=== PATIENT | female | born 1955 | race Caucasian/White ===

== ENCOUNTER → 2016-12-13 | Outpatient (CLI) | payer MEDICARE, BC ==
[~2016-12-13] MED LIST: /FENT25PA TD; /FENT75PA TD; ACET65TA OR; ALBU83IN IN; AMBI5TAB OR; ASPI81TA3 OR; B COMPLEX VIT PO; CLON0.3T TD; COZA100T OR; CoQ10 OR; D3 OR; DILA2TAB OR; ESTR1TAB OR; FISH1000 OR; FLON0.05; FLOV50AE IN; FOLI1TAB OR; HYDROCODONE PO; LEVOXYL25 MCG OR; LIDO5DIS EX; LIDODERM PATCH; MAGN250T OR; MULTIVIT PO; MUSCLE RELAXANT PO; NEUR100C OR; OMEP20TA7 OR; PATANASE; PENNSAID TOP; Probiotics PO; ROBA500T OR; SOMA350T OR; TOPR50TA OR; TRAM50TA2 OR; TRAZADONE PO; TYLE500T53 OR; VITACAP31 OR; VOLT1GEL EX; ZITHTAB OR; [UNRECOGNIZED DRUG - OTHER] PO; [UNRECOGNIZED DRUG - OTHER] PO; flexeril PO; stool softner OR
--- NOTE | 2016-12-13 15:27 | REPMRS ---
Patient History The patient states she had a clinical breast exam in 12/2016. Patient is postmenopausal and has history of basal and squamous cell skin cancer at age 48. No known family history of cancer. Taking estrogen for 30 years. Digital Woman Screen Mammo: December 13, 2016 - Exam #: [id number] Bilateral CC and MLO view(s) were taken. Technologist: Candice Castro, Technologist Prior study comparison: December 09, 2015, digital woman screen mammo performed at [facility]. November 30, 2014, digital woman screen mammo performed at [facility]. FINDINGS: The breast tissue is heterogeneously dense. This may lower the sensitivity of mammography. There has been no change in the appearance of the mammogram from the prior studies. There is a moderate amount of residual fibroglandular tissue which is fairly symmetric. There is no interval development of dominant mass, areas of architectural distortion, or clustered microcalcification typical of malignancy. ASSESSMENT: BI-RADS/ACR category 1 mammogram. Negative. Recommendation Routine screening mammogram in 1 year (for women over age 40). This mammogram was interpreted with the aid of an FDA-approved computer-aided dectection system. Electronically Signed By: Sherwin Prescott MD 12/13/16 1602
== END ==
LOC: M WHC 13:36
PROVIDERS: ATTEND Nurse Practitioner Family
DX: Z01.419 Encounter for gynecological examination (general) (routine) without abnormal findings (principal); Z12.31 Encounter for screening mammogram for malignant neoplasm of breast; R92.8 Other abnormal and inconclusive findings on diagnostic imaging of breast; Z78.0 Asymptomatic menopausal state; Z12.12 Encounter for screening for malignant neoplasm of rectum; Z92.0 Personal history of contraception
CPT/HCPCS: 82270; G0101; G0202

== ENCOUNTER 2017-05-12 14:41 | Emergency (ER) | payer MEDICARE, BC, OTHER ==
[~2017-05-12] VITALS: Ht 154.9 cm; Wt 58.2 kg
[2017-05-12] MEDS ORDERED: PANTOPRAZOLE 40MG INJ (PROTONIX) (C9113) IV ONE (17:15)
[2017-05-12] MEDS ORDERED: NS 1,000 ML IV ONE (17:15)
[2017-05-12] MEDS ORDERED: ONDANSETRON 4MG/2ML VIAL (J2405) IV ONE (17:15)
--- NOTE | 2017-05-12 18:30 | REPUSA ---
Clinical history: Right upper quadrant pain. Findings: The pancreas is limited in visualization secondary to overlying bowel gas, but appears dacia sly unremarkable. The liver demonstrates uniform echotexture and echogenicity, with no mass lesions. The gallbladder is unremarkable. The common bile duct measures 9 mm. The right kidney measures 10.6 c m in length and is unremarkable. There is no ascites. Impression: Dilated common bile duct measures up to 9 mm. No obstructing stone is identified. The gal lbladder is unremarkable. If there is further clinical concern, MRCP could be performed.
[2017-05-12 18:41] LABS: BASO % 0.5 % (0.0-1.0); EOS # 0.1 10^3/uL (0.0-0.50); EOS % 2.1 % (0.0-3.0); IMMATURE GRANULOCYTE % 0.2 % (0-0); LYMPH # 1.5 10^3/uL (1.5-4.5); LYMPH % 34.5 % (24.0-44.0); MEAN CORPUSCULAR HEMOGLOBIN 32.6 pg (27.0-33.0); MEAN CORPUSCULAR HGB CONC 33.9 g/dl (32.0-36.5); MONO # 0.3 10^3/uL (0.0-0.8); NEUTROPHILS # 2.3 10^3/uL (1.8-7.7); NEUTROPHILS % 54.7 % (36.0-66.0); PLATELET COUNT, AUTOMATED 264 10^3/uL (150-450); RED CELL DISTRIBUTION WIDTH 12.6 % (11.5-14.5); WHITE BLOOD COUNT 4.2 10^3/uL (4.0-10.0)
[2017-05-12 18:42] LABS: ADD MANUAL DIFFER NO; DIFF SLIDE NUMBER 157
[2017-05-12 20:15] LABS: ALBUMIN 2.7 GM/DL (3.2-5.2); ALKALINE PHOSPHATASE 54 U/L (45-117); ALT/SGPT 35 U/L (12-78); AMYLASE 50 U/L (25-115); ANION GAP 7 MEQ/L (8-16); AST/SGOT 25 U/L (15-37); BILIRUBIN,DIRECT 0.1 MG/DL (0.0-0.2); BILIRUBIN,TOTAL 0.4 MG/DL (0.2-1.0); BLOOD UREA NITROGEN 7 MG/DL (7-18); CALCIUM LEVEL 7.9 MG/DL (8.8-10.2); CARBON DIOXIDE LEVEL 25 MEQ/L (21-32); CHLORIDE LEVEL 109 MEQ/L (98-107); GLOMERULAR FILTRATION RATE > 60.0 (>45); GLUCOSE, FASTING 58 MG/DL (80-110); POTASSIUM SERUM 4.1 MEQ/L (3.5-5.1); SODIUM LEVEL 141 MEQ/L (136-145); TOTAL PROTEIN 5.7 GM/DL (6.4-8.2)
[2017-05-12 21:08] VITALS: BP 144/65
== END 2017-05-12 21:15 | disposition home or self-care (01) ==
LOC: M ED 14:41
DX: R10.9 Unspecified abdominal pain (principal); R11.0 Nausea; R51 Headache; I10 Essential (primary) hypertension; K21.9 Gastro-esophageal reflux disease without esophagitis; K28.9 Gastrojejunal ulcer, unspecified as acute or chronic, without hemorrhage or perforation; N93.9 Abnormal uterine and vaginal bleeding, unspecified; M79.9 Soft tissue disorder, unspecified; M54.9 Dorsalgia, unspecified; E03.9 Hypothyroidism, unspecified; D70.4 Cyclic neutropenia; M79.7 Fibromyalgia; J30.2 Other seasonal allergic rhinitis; Z87.891 Personal history of nicotine dependence; Z79.899 Other long term (current) drug therapy; Z88.8 Allergy status to other drugs, medicaments and biological substances
CPT/HCPCS: 36415; 76705; 80048; 80076; 82150; 83690; 85025; 96361; 96374; 96375; 99283; C9113; J2405

== ENCOUNTER → 2018-01-10 | Outpatient (CLI) | payer MEDICARE, BC | LOC: M WHC 14:15 | DX: Z01.419 Encounter for gynecological examination (general) (routine) without abnormal findings (principal); Z12.31 Encounter for screening mammogram for malignant neoplasm of breast (principal); Z78.0 Asymptomatic menopausal state; Z92.23 Personal history of estrogen therapy | CPT/HCPCS: 77067 ==

== ENCOUNTER → 2019-06-02 | Outpatient (REF) | payer MEDICARE, BC, OTHER ==
[~2019-06-02] MED LIST changes: -/FENT25PA TD; -/FENT75PA TD; +FENT1DIS14 TD; +FENT1DIS16 TD; +METO-743 OR; -TOPR50TA OR
[2019-06-02 14:00] LABS: BASO % 0.5 % (0.0-1.0); EOS # 0.1 10^3/uL (0.0-0.5); EOS % 1.4 % (0.0-3.0); HEMOGLOBIN 12.7 g/dl (12.0-15.5); LYMPH # 1.4 10^3/uL (1.5-5.0); LYMPH % 38.3 % (24.0-44.0); MEAN CORPUSCULAR HEMOGLOBIN 32.1 pg (27.0-33.0); MEAN CORPUSCULAR HGB CONC 32.6 g/dl (32.0-36.5); MEAN CORPUSCULAR VOLUME 98.5 fl (80.0-96.0); MONO # 0.4 10^3/uL (0.0-0.8); MONO % 11.5 % (0.0-5.0); NEUTROPHILS # 1.8 10^3/uL (1.5-8.5); PLATELET COUNT, AUTOMATED 231 10^3/uL (150-450); RED BLOOD COUNT 3.96 10^6/uL (4.00-5.40); WHITE BLOOD COUNT 3.7 10^3/uL (4.0-10.0)
[2019-06-02 14:10] LABS: ALT/SGPT 24 U/L (12-78); BILIRUBIN,TOTAL 0.4 MG/DL (0.2-1.0); BLOOD UREA NITROGEN 16 MG/DL (7-18); CALCIUM LEVEL 8.7 MG/DL (8.8-10.2); CARBON DIOXIDE LEVEL 31 MEQ/L (21-32); CHLORIDE LEVEL 105 MEQ/L (98-107); CREATININE FOR GFR 0.75 MG/DL (0.55-1.30); GLOMERULAR FILTRATION RATE > 60.0 (>45); GLUCOSE, FASTING 76 MG/DL (70-100); POTASSIUM SERUM 4.8 MEQ/L (3.5-5.1); SODIUM LEVEL 138 MEQ/L (136-145)
[2019-06-02 14:11] LABS: RHEUMATOID FACTOR QUANT < 10.0 IU/ML (<15.0); TOTAL 25(OH) VITAMIN D 62.2 NG/ML (30.0-100.0); TOTAL PROTEIN 7.3 GM/DL (6.4-8.2)
[2019-06-02 15:38] LABS: ERYTHROCYTE SEDIMENTATION RATE 12 mm/hr (0-30)
[2019-06-03 14:07] LABS: ANTI DOUBLE STRAND-DNA AB <1 IU/mL (0-9); ANTINUCLEAR ANTIBODIES DIRECT Positive (Negative); RNP ANTIBODIES 1.1 AI (0.0-0.9); SJOGREN'S ANTI SS-A <0.2 AI (0.0-0.9); SJOGREN'S ANTI SS-B <0.2 AI (0.0-0.9); SMITH ANTIBODIES <0.2 AI (0.0-0.9)
== END ==
LOC: M LABNEURO 09:08
PROVIDERS: ATTEND Psychiatry & Neurology Neurology
DX: R51 Headache (principal); Z79.899 Other long term (current) drug therapy

== ENCOUNTER 2019-07-17 14:51 | Emergency (ER) | payer MEDICARE, BC, OTHER ==
[~2019-07-17] VITALS: Ht 154.9 cm; Wt 57.3 kg
[2019-07-17 15:58] LABS: BASO % 0.2 % (0.0-1.0); EOS % 0.6 % (0.0-3.0); HEMATOCRIT 43.5 % (36.0-47.0); HEMOGLOBIN 14.2 g/dl (12.0-15.5); LYMPH # 1.5 10^3/uL (1.5-5.0); LYMPH % 31.4 % (24.0-44.0); MEAN CORPUSCULAR HEMOGLOBIN 32.6 pg (27.0-33.0); MEAN CORPUSCULAR HGB CONC 32.6 g/dl (32.0-36.5); MONO # 0.4 10^3/uL (0.0-0.8); MONO % 7.7 % (0.0-5.0); NEUTROPHILS # 2.9 10^3/uL (1.5-8.5); NEUTROPHILS % 59.9 % (36.0-66.0); PLATELET COUNT, AUTOMATED 211 10^3/uL (150-450); RED BLOOD COUNT 4.35 10^6/uL (4.00-5.40); WHITE BLOOD COUNT 4.9 10^3/uL (4.0-10.0)
[2019-07-17] MEDS ORDERED: ONDANSETRON 4MG/2ML VIAL (J2405) IV ONE (16:00)
[2019-07-17] MEDS ORDERED: GI COCKTAIL 50ML BTL(HYOSCYAMINE/MAALOX/LIDOCAINE VISCOUS)(1:3:1) PO ONE (16:00)
[2019-07-17] MEDS ORDERED: NS 1,000 ML IV ONE (16:00)
[2019-07-17] MEDS ORDERED: MORPHINE 2 MG/ML 1ML VIAL (J2270) IV PRN (16:00)
[2019-07-17 16:10] LABS: BLOOD UREA NITROGEN 8 MG/DL (7-18); CALCIUM LEVEL 8.4 MG/DL (8.8-10.2); CARBON DIOXIDE LEVEL 25 MEQ/L (21-32); CHLORIDE LEVEL 107 MEQ/L (98-107); CREATININE FOR GFR 0.79 MG/DL (0.55-1.30); GLOMERULAR FILTRATION RATE > 60.0 (>45); GLUCOSE, FASTING 82 MG/DL (70-100); POTASSIUM SERUM 4.6 MEQ/L (3.5-5.1); SODIUM LEVEL 136 MEQ/L (136-145)
[2019-07-17 16:11] LABS: ALBUMIN 3.8 GM/DL (3.2-5.2); ALT/SGPT 24 U/L (12-78); AMYLASE 79 U/L (25-115); BILIRUBIN,DIRECT 0.1 MG/DL (0.0-0.2); BILIRUBIN,TOTAL 0.4 MG/DL (0.2-1.0); CK-MB VALUE MASS < 1.0 NG/ML (<3.6); CPK CREATINE PHOSPHOKINASE 45 U/L (26-192); LIPASE 263 U/L (73-393); MB/CK RELATIVE INDEX 2.22 (< OR =4); TOTAL PROTEIN 7.5 GM/DL (6.4-8.2); TROPONIN I < 0.02 NG/ML (< 0.10)
[2019-07-17] MEDS ORDERED: ISOVUE-370 76% 100ML VIAL (Q9967) As Ordered ONE (16:17)
[2019-07-17] MEDS ORDERED: ACET25TA12 PO (16:58)
[2019-07-17] MEDS ORDERED: CYCL5TAB PO (16:58)
[2019-07-17] MEDS ORDERED: VITMTA PO (16:58)
[2019-07-17] MEDS ORDERED: CVS1CAP2 PO (16:58)
[2019-07-17] MEDS ORDERED: VITA100066 PO (16:58)
[2019-07-17] MEDS ORDERED: ACET650T15 PO (16:58)
[2019-07-17] MEDS ORDERED: FOLI1TAB11 PO (16:58)
[2019-07-17] MEDS ORDERED: TRAM50TA2 PO (16:58)
[2019-07-17] MEDS ORDERED: TRAZ-252 PO (16:58)
[2019-07-17] MEDS ORDERED: RANI15TA PO (16:58)
[2019-07-17] MEDS ORDERED: RA T500C2 PO (16:58)
[2019-07-17] MEDS ORDERED: METO1TAB7 PO (16:58)
[2019-07-17] MEDS ORDERED: ESTR1TAB PO (16:58)
[2019-07-17] MEDS ORDERED: LEVO75TA4 PO (16:58)
[2019-07-17] MEDS ORDERED: MAG-400T7 PO (16:58)
--- NOTE | 2019-07-17 17:18 | REP ---
REASON: Left upper quadrant pain. COMPARISON: 09/14/2011 The technique utilized in obtaining the radiograph has magnified the cardiac silhouette and accentuated the interstitial markings. FINDINGS: The superior mediastinal structures are midline. The cardiac silhouette is unremarkable in size, shape, and position. The diaphragmatic surfaces of the lungs are regular, and the costophrenic angles are clear. The pulmonary carey are clear. The imaged osseous structures are intact. IMPRESSION: There is no acute cardiopulmonary disease. Electronically Signed by Robert Garnica DO 07/20/2019 01:13 P
[2019-07-17] MEDS ORDERED: SUCR1TA PO (18:19)
[2019-07-17] MEDS ORDERED: OMEP40CA97 PO (18:19)
[2019-07-17] MEDS ORDERED: REGL5TAB2 PO (18:21)
--- NOTE | 2019-07-17 18:44 | REP ---
CT abdomen and pelvis with IV but without oral contrast: History: Left upper quadrant pain. CT contrast dose: 100 ml of intravenous Isovue 370. No comparison study. CT findings: Digital preliminary pinion polisher radiograph shows numerous monitoring electrodes but bowel gas pattern appears normal. The lung bases are essentially clear. Axial CT images demonstrate that the liver and the spleen are normal in size homogeneous in texture. No abnormalities noted in the gallbladder. No adrenal lesion is seen. The main pancreatic duct is slightly prominent, 3 mm. Common bile duct measures 5 mm. No pancreatic mass or cyst is seen. No retroperitoneal mass or adenopathy is observed. The kidneys enhance symmetrically and appear morphologically intact. No retroperitoneal mass or adenopathy is seen. Small and large intestinal bowel loops are normal in the abdomen and pelvis. The appendix is not identified. There is a radiolucency along the margin of the cecum suggesting a suture line although the patient did not report of prior appendectomy. In any event, there is no inflammatory change in the right lower quadrant suggest appendicitis. The uterus is surgically absent. No adnexal mass or free fluid is seen. Urinary bladder is unremarkable. No abdominal wall defect is seen. Impression: Mildly prominent main pancreatic duct, [address] abdomen and pelvis. Uterus is surgically absent. Question prior appendectomy. No CT evidence of appendicitis. Electronically Signed by Tai Mcmahon MD 07/17/2019 08:03 P
[2019-07-17 19:22] VITALS: BP 182/78
--- NOTE | 2019-07-17 20:19 | ECGEPIP ---
[facility] - ED Test Date: 2019-07-17 Pat Name: FIDE MONZON Department: Room: - Gender: Female Hospitality Aide: ct : 1955 Requested By: Onel Jimenez Order Number: [id number] Reading MD: Shazia Mccabe Measurements Intervals [place] Rate: 63 P: 60 WV: 147 QRS: 37 QRSD: 85 T: 37 QT: 375 QTc: 386 Interpretive Statements SINUS RHYTHM NO PRIOR Electronically Signed on 07-17-2019 20:19:39 EST by Shazia Mccabe
--- NOTE | 2019-07-18 07:33 | ED PDOC ---
Post-Departure Follow-Up dr yost faxed formal report of ct abd/p for fu Adriana Kang MD Jul 18, 2019 07:33
== END 2019-07-17 19:30 | disposition home or self-care (01) ==
LOC: M ED 14:51
DX: K29.70 Gastritis, unspecified, without bleeding (principal); K86.89 Other specified diseases of pancreas; R11.0 Nausea; I10 Essential (primary) hypertension; K27.9 Peptic ulcer, site unspecified, unspecified as acute or chronic, without hemorrhage or perforation; K90.0 Celiac disease; J30.2 Other seasonal allergic rhinitis; Z88.1 Allergy status to other antibiotic agents; Z88.6 Allergy status to analgesic agent; Z79.83 Long term (current) use of bisphosphonates; Z79.891 Long term (current) use of opiate analgesic; Z79.899 Other long term (current) drug therapy
CPT/HCPCS: 71045; 74177; 80048; 80076; 82150; 82550; 82553; 83690; 84484; 85025; 93005; 93041; 96374; 96375; 99285; J2270; J2405; Q9967

== ENCOUNTER → 2019-07-24 | Outpatient (REF) | payer MEDICARE, OTHER ==
[~2019-07-24] MED LIST changes: +ACET25TA12 PO; +ACET650T15 PO; +CVS1CAP2 PO; +CYCL5TAB PO; +ESTR1TAB PO; +FOLI1TAB11 PO; +LEVO75TA4 PO; +MAG-400T7 PO; +METO1TAB7 PO; +OMEP40CA97 PO; +RA T500C2 PO; +RANI15TA PO; +REGL5TAB2 PO; +SUCR1TA PO; +TRAM50TA2 PO; +TRAZ-252 PO; +VITA100066 PO; +VITMTA PO
[2019-07-24 18:24] LABS: PERCENT SATURATION 37.5 % (13.2-45.0)
== END ==
LOC: M LAB REF 16:41
PROVIDERS: ATTEND Internal Medicine
DX: D52.8 Other folate deficiency anemias (principal)

== ENCOUNTER → 2019-08-18 | Outpatient (CLI) | payer MEDICARE, OTHER ==
[2019-08-18 20:49] LABS: BASO % 0.2 % (0.0-1.0); EOS # 0.1 10^3/uL (0.0-0.5); EOS % 0.9 % (0.0-3.0); HEMATOCRIT 40.4 % (36.0-47.0); HEMOGLOBIN 13.3 g/dl (12.0-15.5); LYMPH # 1.8 10^3/uL (1.5-5.0); LYMPH % 32.3 % (24.0-44.0); MEAN CORPUSCULAR HEMOGLOBIN 32.4 pg (27.0-33.0); MEAN CORPUSCULAR HGB CONC 32.9 g/dl (32.0-36.5); MEAN CORPUSCULAR VOLUME 98.5 fl (80.0-96.0); MONO # 0.5 10^3/uL (0.0-0.8); MONO % 8.6 % (0.0-5.0); NEUTROPHILS # 3.3 10^3/uL (1.5-8.5); NEUTROPHILS % 57.8 % (36.0-66.0); PLATELET COUNT, AUTOMATED 289 10^3/uL (150-450); WHITE BLOOD COUNT 5.7 10^3/uL (4.0-10.0)
== END ==
LOC: M WUC 16:10
PROVIDERS: ATTEND Internal Medicine
DX: D52.8 Other folate deficiency anemias (principal)

== ENCOUNTER → 2019-09-28 | Outpatient (REF) | payer MEDICARE, OTHER | LOC: M LAB REF 16:38 | PROVIDERS: ATTEND Internal Medicine | DX: R10.9 Unspecified abdominal pain (principal); R19.7 Diarrhea, unspecified; D64.9 Anemia, unspecified ==

== ENCOUNTER → 2019-12-21 | Outpatient (CLI) | payer MEDICARE, BC, OTHER ==
--- NOTE | 2019-12-22 08:41 | REP ---
Gastric emptying nuclear scintigraphy: History: Pain and nausea. Technique: 1.04 mCi of technetium-99m sulfur colloid was ingested in two scrambled eggs and 6 ounces of water and sequential anterior and posterior images are acquired for an 89-minute imaging observation period. Regions of interest are drawn around the stomach to plot gastric emptying. Scintigraphic findings: Expected T1/2 is 90 minutes. 41 % emptying is observed in this patient during the 89-minute imaging observation period, for a calculated T1/2 in this patient of 112 minutes. Impression: Minimally delayed gastric emptying. Electronically Signed by Tai Mcmahon MD 12/22/2019 08:31 A
== END ==
LOC: M RAD 12:37
PROVIDERS: ATTEND Internal Medicine Gastroenterology
DX: R11.0 Nausea (principal); R10.9 Unspecified abdominal pain; K30 Functional dyspepsia
CPT/HCPCS: 78264; A9541

== ENCOUNTER → 2020-02-04 | Outpatient (CLI) | payer MEDICARE, BC, OTHER ==
--- NOTE | 2020-02-04 10:41 | REP ---
Hepatobiliary scan and gallbladder ejection fraction: History: Abdomen pain. Technique: 6.6 mCi of technetium-99m mebrofenin was injected and sequential anterior images are acquired. 65 minutes after the mebrofenin injection, the patient consumed 8 ounces Ensure and an additional 60 minutes of imaging was acquired. Regions of interest are plotted around the gallbladder. Findings: The initial hepatocellular parenchymal uptake phase is normal and homogeneous. Intra- and extra-hepatic bile ducts are labeled by the 10 -minute image. The gallbladder is first labeled on the 15 -minute image. There is normal washout from the liver parenchyma into the gallbladder and small intestine on subsequent images. The gallbladder ejection fraction is 86 %. Values greater than 35 % are considered normal with this technique. Impression: Normal hepatobiliary scan and normal gallbladder ejection fraction. Electronically Signed by Tai Mcmahon MD 02/04/2020 10:33 A
== END ==
LOC: M RAD 07:34
PROVIDERS: ATTEND Internal Medicine Gastroenterology
DX: K82.8 Other specified diseases of gallbladder (principal)
CPT/HCPCS: 78227; A9537

== ENCOUNTER → 2020-07-11 | Outpatient (CLI) | payer MEDICARE, BC, OTHER | LOC: M LABSMTC 16:10 | PROVIDERS: ATTEND Pediatrics | DX: Z20.828 Contact with and (suspected) exposure to other viral communicable diseases (principal) ==

== ENCOUNTER → 2021-01-10 | Outpatient (CLI) | payer MEDICARE, BC, OTHER ==
[~2021-01-10] MED LIST changes: +GASTROGRAFIN SOLUTION 30ML (Q9963) As Ordered ONE; +ISOVUE-370 76% 100ML VIAL As Ordered ONE
--- NOTE | 2021-01-10 19:32 | REP ---
INDICATION: ABD PAIN. COMPARISON: 07/17/2019. TECHNIQUE: Oral contrast was administered. CT abdomen performed without IV contrast. CT abdomen and pelvis performed with the intravenous administration of 100 cc of Isovue 370. Sagittal and coronal reconstruction images are performed. FINDINGS: Lung bases: Unremarkable. Liver: Normal Gallbladder: Unremarkable. Spleen: Normal. Adrenals: Normal. Pancreas: Pancreatic duct is mildly dilated up to 4-5 mm diffusely. No pancreatic mass is seen. Kidneys: Normal. Small and large bowel: Unremarkable. Free fluid: None. Abdominal aorta: No aneurysm or dissection. Adenopathy: None. Appendix: Prior appendectomy. Osseous structures: Unremarkable. Pelvis: No mass. Prior hysterectomy. IMPRESSION: Stable mild diffuse pancreatic duct dilatation. No suspicious mass or adenopathy. No free air or free fluid. No definite bowel abnormality. <Electronically signed by Sherwin Prescott > 01/10/21 3022
== END ==
LOC: M RAD 15:34
PROVIDERS: ATTEND Internal Medicine
DX: R10.9 Unspecified abdominal pain (principal)
CPT/HCPCS: 74178; Q9963; Q9967

== ENCOUNTER → 2021-02-03 | Outpatient (CLI) | payer MEDICARE, BC, OTHER ==
[~2021-02-03] MED LIST changes: -GASTROGRAFIN SOLUTION 30ML (Q9963) As Ordered ONE; -ISOVUE-370 76% 100ML VIAL As Ordered ONE; +OMEP40CA4 PO; -OMEP40CA97 PO
--- NOTE | 2021-02-03 11:38 | REP ---
INDICATION: RUQ PAIN. COMPARISON: Comparison study February 04, 2020.. TECHNIQUE/RADIOTRACER AND DOSE: 6.6 mCi of Technetium-99m mebrofenin was injected and sequential anterior images are acquired. 65 minutes after the mebrofenin injection, the patient consumed 8 ounces Ensure and an additional 60 minutes of imaging was acquired. Regions of interest are plotted around the gallbladder. FINDINGS: The initial hepatocellular parenchymal uptake phase is normal and homogeneous. Intra- and extra-hepatic bile ducts are labeled by the 5-minute image. The gallbladder is first labeled on the 10-minute image. There is normal washout from the liver parenchyma into the gallbladder and small intestine on subsequent images. The gallbladder ejection fraction is 82%. Values greater than 35% are considered normal with this technique. IMPRESSION: Normal hepatobiliary scan and normal gallbladder ejection fraction. <Electronically signed by Tawanda Mcmahon > 02/03/21 [id number]
== END ==
LOC: M RAD 08:54
PROVIDERS: ATTEND Internal Medicine
DX: R10.11 Right upper quadrant pain (principal)
CPT/HCPCS: 78227; A9537

== ENCOUNTER → 2021-03-15 | Outpatient (CLI) | payer MEDICARE, BC, OTHER ==
[~2021-03-15] MED LIST changes: +D31000TA2 PO; +EQL50TAB2 PO; +FREM225A; +HYDR200T3 PO; +HYOS125TA; +KP F1200 PO; +[UNRECOGNIZED DRUG - OTHER] PO
== END ==
LOC: M LABSMTC 09:32
PROVIDERS: ATTEND Anesthesiology
DX: Z20.828 Contact with and (suspected) exposure to other viral communicable diseases (principal); Z11.59 Encounter for screening for other viral diseases

== ENCOUNTER 2021-03-20 11:39 | Day surgery (SDC) | payer MEDICARE, BC, OTHER ==
[~2021-03-20] VITALS: Ht 154.9 cm; Wt 59.4 kg
[~2021-03-20 11:39] MED LIST changes: +NS 1,000 ML IV ONE
[2021-03-20] MEDS ORDERED: LIDOCAINE 2% 100MG/5ML SDV (FOR ANES.) As Ordered ONE (12:40)
[2021-03-20] MEDS ORDERED: fentaNYL 100 MCG/2 ML INJECTION (J3010) As Ordered ONE (12:40)
[2021-03-20] MEDS ORDERED: propofoL 200 MG/20 ML VIAL As Ordered ONE (12:40)
--- NOTE | 2021-03-20 13:00 | ROOR ---
Patient Name: Gaye Vargas Procedure Date: 03/20/2021 12:47 PM Date of : 1955 Age: 66 Room: [facility] Gender: Female Note Status: Finalized Procedure: Upper Endoscopy + Biopsies Indications: Abdominal pain in the left upper quadrant, Heartburn Providers: Shelton Alicea MD Referring MD: Criselda Woodruff DO Requesting Provider: Medicines: Monitored Anesthesia Care Complications: No immediate complications. Procedure: Pre-Anesthesia Assessment: - The heart rate, respiratory rate, oxygen saturations, blood pressure, adequacy of pulmonary ventilation, and response to care were monitored throughout the procedure. The Endoscope was introduced through the mouth, and advanced to the second part of duodenum. The upper GI endoscopy was accomplished without difficulty. The patient tolerated the procedure well. Findings: The Z-line was regular and was found 40 cm from the incisors. Multiple biopsies were obtained with cold forceps for evaluation to rule out Pena's Esophagus randomly at the gastroesophageal junction. No other significant abnormalities were identified in a careful examination of the stomach. Biopsies were taken with a cold forceps in the gastric antrum for Helicobacter pylori testing. The exam of the duodenum was otherwise normal. Impression: - Z-line regular, 40 cm from the incisors. - Multiple biopsies were obtained at the gastroesophageal junction. - Biopsies were taken with a cold forceps for Helicobacter pylori testing. - The examination was otherwise normal. Recommendation: - Patient has a contact number available for emergencies. The signs and symptoms of potential delayed complications were discussed with the patient. Return to normal activities tomorrow. Written discharge instructions were provided to the patient. - High fiber diet. - Discharge patient to home. - Continue present medications. - Await pathology results. - Telephone GI clinic for pathology results in 1 week. - Return to referring physician. - The findings and recommendations were discussed with the patient's family. Procedure Code(s): --- Professional --- 71766, Esophagogastroduodenoscopy, flexible, transoral; with biopsy, single or multiple Diagnosis Code(s): --- Professional --- R10.12, Left upper quadrant pain R12, Heartburn CPT copyright 2019 [employer]. All rights reserved. The codes documented in this report are preliminary and upon medical billing coder review may be revised to meet current compliance requirements. Shelton Alicea MD Shelton Alicea MD 03/20/2021 1:00:19 PM Electronically signed by Shelton Alicea MD Number of Addenda: 0 Note Initiated On: 03/20/2021 12:47 PM Estimated Blood Loss: Estimated blood loss: none.
[2021-03-20] MEDS ORDERED: ePHEDrine SULFATE 25 MG/5 ML(5MG/ML) SYRINGE As Ordered ONE (13:15)
[2021-03-20] MEDS ORDERED: PHENYLEPHRINE 10MG/ML 1ML VIAL (J2370 PER 1) As Ordered ONE (13:15)
--- NOTE | 2021-03-20 13:15 | ROOR ---
Patient Name: Gaye Vargas Procedure Date: 03/20/2021 12:48 PM Date of : 1955 Age: 66 Room: [facility] Gender: Female Note Status: Finalized Procedure: Total Colonoscopy to Cecum Indications: Colon cancer screening in patient at increased risk: Colorectal cancer in mother Providers: Shelton Alicea MD Referring MD: Criselda Woodruff DO Requesting Provider: Medicines: Monitored Anesthesia Care Complications: No immediate complications. Procedure: Pre-Anesthesia Assessment: - The heart rate, respiratory rate, oxygen saturations, blood pressure, adequacy of pulmonary ventilation, and response to care were monitored throughout the procedure. The Colonoscope was introduced through the anus and advanced to the cecum, identified by appendiceal orifice and ileocecal valve. The colonoscopy was performed without difficulty. The patient tolerated the procedure well. The quality of the bowel preparation was excellent. Findings: The perianal and digital rectal examinations were normal. No other significant abnormalities were identified in a careful examination of the remainder of the colon. The exam was otherwise without abnormality on direct and retroflexion views. Impression: - The examination was otherwise normal on direct and retroflexion views. - No specimens collected. - The exam was otherwise normal to the cecum. Recommendation: - Patient has a contact number available for emergencies. The signs and symptoms of potential delayed complications were discussed with the patient. Return to normal activities tomorrow. Written discharge instructions were provided to the patient. - High fiber diet. - Discharge patient to home. - Continue present medications. - Repeat colonoscopy in 5 years for screening purposes. - Return to referring physician. - The findings and recommendations were discussed with the patient's family. Procedure Code(s): --- Professional --- 65566, Colonoscopy, flexible; diagnostic, including collection of specimen(s) by brushing or washing, when performed (separate procedure) Diagnosis Code(s): --- Professional --- Z80.0, Family history of malignant neoplasm of digestive organs CPT copyright 2019 [employer]. All rights reserved. The codes documented in this report are preliminary and upon physics technical officer review may be revised to meet current compliance requirements. Shelton Alicea MD Shelton Alicea MD 03/20/2021 1:15:35 PM Electronically signed by Shelton Alicea MD Number of Addenda: 0 Note Initiated On: 03/20/2021 12:48 PM Estimated Blood Loss: Estimated blood loss: none.
[2021-03-20 13:39] VITALS: BP 132/62
== END 2021-03-20 13:41 | disposition home or self-care (01) ==
LOC: M OPP 11:39
PROVIDERS: ATTEND Internal Medicine Gastroenterology
DX: R10.12 Left upper quadrant pain (principal); Z80.0 Family history of malignant neoplasm of digestive organs; K59.00 Constipation, unspecified; R12 Heartburn; M32.9 Systemic lupus erythematosus, unspecified; M79.7 Fibromyalgia; Z79.899 Other long term (current) drug therapy; Z79.891 Long term (current) use of opiate analgesic; Z87.891 Personal history of nicotine dependence
CPT/HCPCS: 43239; 45378; 88305; J2370; J3010

== ENCOUNTER → 2021-07-17 | Outpatient (REF) | payer MEDICARE, BC, OTHER ==
[~2021-07-17] MED LIST changes: -NS 1,000 ML IV ONE
== END ==
LOC: M LAB REF 11:25
PROVIDERS: ATTEND Internal Medicine
DX: D72.818 Other decreased white blood cell count (principal)

== ENCOUNTER → 2021-10-31 | Outpatient (CLI) | payer MEDICARE, OTHER ==
[~2021-10-31] MED LIST changes: -D31000TA2 PO; +VITA100093 PO
== END ==
LOC: M PAIN 13:00
PROVIDERS: ATTEND Nurse Practitioner Family
DX: R10.9 Unspecified abdominal pain (principal); G89.29 Other chronic pain; E03.9 Hypothyroidism, unspecified; M79.7 Fibromyalgia; Z86.14 Personal history of Methicillin resistant Staphylococcus aureus infection; Z86.59 Personal history of other mental and behavioral disorders; Z87.891 Personal history of nicotine dependence; Z88.1 Allergy status to other antibiotic agents; Z88.5 Allergy status to narcotic agent; Z79.899 Other long term (current) drug therapy

== ENCOUNTER → 2021-11-30 | Outpatient (CLI) | payer MEDICARE, OTHER | LOC: M PAIN 11:30 | PROVIDERS: ATTEND Anesthesiology | DX: R10.12 Left upper quadrant pain (principal); G89.29 Other chronic pain; E03.9 Hypothyroidism, unspecified; M79.7 Fibromyalgia; Z86.14 Personal history of Methicillin resistant Staphylococcus aureus infection; Z86.59 Personal history of other mental and behavioral disorders; Z87.891 Personal history of nicotine dependence; Z88.1 Allergy status to other antibiotic agents; Z88.8 Allergy status to other drugs, medicaments and biological substances; Z79.899 Other long term (current) drug therapy ==

== ENCOUNTER → 2021-12-21 | Outpatient (REF) | payer MEDICARE, OTHER | LOC: M LAB REF 16:12 | PROVIDERS: ATTEND Physician Assistant Medical | DX: R10.84 Generalized abdominal pain (principal) ==

== ENCOUNTER 2021-12-27 11:14 | Emergency (ER) | payer MEDICARE, OTHER ==
[~2021-12-27] VITALS: Ht 154.9 cm; Wt 58.2 kg
[2021-12-27 15:30] LABS: BASO % 0.4 % (0.0-1.0); EOS % 0.2 % (0.0-3.0); HEMATOCRIT 42.7 % (36.0-47.0); HEMOGLOBIN 14.9 g/dl (12.0-15.5); LYMPH # 1.6 10^3/uL (1.5-5.0); LYMPH % 27.4 % (24.0-44.0); MEAN CORPUSCULAR HEMOGLOBIN 32.5 pg (27.0-33.0); MEAN CORPUSCULAR HGB CONC 34.9 g/dl (32.0-36.5); MEAN CORPUSCULAR VOLUME 93.2 fl (80.0-96.0); MONO # 0.4 10^3/uL (0.0-0.8); MONO % 7.7 % (2.0-8.0); NEUTROPHILS # 3.7 10^3/uL (1.5-8.5); NEUTROPHILS % 64.1 % (36.0-66.0); PLATELET COUNT, AUTOMATED 303 10^3/uL (150-450); RED BLOOD COUNT 4.58 10^6/uL (4.00-5.40); WHITE BLOOD COUNT 5.7 10^3/uL (4.0-10.0)
[2021-12-27] MEDS ORDERED: KETOROLAC 30 MG/ML 1ML VIAL IV ONE (15:45)
[2021-12-27] MEDS ORDERED: NS 1,000 ML IV ONE (15:45)
[2021-12-27 16:02] LABS: ALT/SGPT 22 U/L (12-78); BILIRUBIN,DIRECT 0.1 MG/DL (0.0-0.2); BILIRUBIN,TOTAL 0.6 MG/DL (0.2-1.0); BLOOD UREA NITROGEN 13 MG/DL (7-18); C REACTIVE PROTEIN QUANTITATIV 1.87 MG/DL (0.00-0.30); CALCIUM LEVEL 8.9 MG/DL (8.8-10.2); CARBON DIOXIDE LEVEL 20 MEQ/L (21-32); CHLORIDE LEVEL 100 MEQ/L (98-107); CREATININE FOR GFR 0.77 MG/DL (0.55-1.30); GLOMERULAR FILTRATION RATE > 60.0 (>45); GLUCOSE, FASTING 46 MG/DL (70-100); LIPASE 214 U/L (73-393); POTASSIUM SERUM 3.6 MEQ/L (3.5-5.1); SODIUM LEVEL 134 MEQ/L (136-145); TOTAL PROTEIN 7.6 GM/DL (6.4-8.2)
[2021-12-27] MEDS ORDERED: DEXTROSE 15GM (40%) TUBE (GLUTOSE 15) PO ONE (16:05)
[2021-12-27] MEDS ORDERED: DEXTROSE 50% 50 ML SYRINGE IV STA (16:14)
[2021-12-27] MEDS ORDERED: DEXTROSE 50% 50 ML SYRINGE As Ordered ONE (16:15)
[2021-12-27 16:22] LABS: ERYTHROCYTE SEDIMENTATION RATE 17 mm/hr (0-30)
[2021-12-27] MEDS ORDERED: ISOVUE-370 76% 100ML VIAL As Ordered ONE (16:28)
[2021-12-27 17:56] LABS: HEMOGLOBIN A1c 5.1 %
[2021-12-27 17:59] LABS: ACETONE/KETONE > 46.00 MG/DL (<2.81); THYROID STIMULATING HORMONE 0.233 uIU/ML (0.358-3.740); THYROXINE (T4) 12.1 UG/DL (4.5-12.0)
[2021-12-27 18:04] LABS: PTH INTACT 46.1 PG/ML (18.5-88.0)
[2021-12-27] MEDS ORDERED: DICYCLOMINE 10 MG CAP PO ONE (18:40)
[2021-12-27] MEDS ORDERED: metroNIDAZOLE (FLAGYL) 500MG TABLET PO ONE (18:40)
[2021-12-27 18:57] LABS: CK-MB VALUE MASS < 1.0 NG/ML (<3.6); CPK CREATINE PHOSPHOKINASE 82 U/L (26-192); MB/CK RELATIVE INDEX 1.22 (< OR =4)
[2021-12-27] MEDS ORDERED: DICY10CA13 PO (20:29)
[2021-12-27] MEDS ORDERED: FLAG375C PO (20:29)
[2021-12-27 20:32] VITALS: BP 137/66
== END 2021-12-27 21:39 | disposition home or self-care (01) ==
LOC: M ED 11:14
DX: R10.9 Unspecified abdominal pain (principal); R19.7 Diarrhea, unspecified; M32.9 Systemic lupus erythematosus, unspecified; I10 Essential (primary) hypertension; E07.9 Disorder of thyroid, unspecified; Z79.899 Other long term (current) drug therapy; Z88.1 Allergy status to other antibiotic agents
CPT/HCPCS: 71045; 74177; 76705; 80053; 82010; 82248; 82550; 82553; 83036; 83690; 83970; 84436; 84443; 84479; 84484; 85025; 85652; 86140; 93005; 96361; 96374; 96375; 99284; J1885; Q9967

== ENCOUNTER → 2021-12-28 | Outpatient (REF) | payer MEDICARE, OTHER ==
[~2021-12-28] MED LIST changes: +DICY10CA13 PO; +FLAG375C PO
== END ==
LOC: M LAB REF 20:41
PROVIDERS: ATTEND Internal Medicine
DX: R19.7 Diarrhea, unspecified (principal)

== ENCOUNTER → 2022-07-20 | Outpatient (REF) | payer MEDICARE, OTHER ==
[2022-07-20 17:59] LABS: C REACTIVE PROTEIN QUANTITATIV < 0.40 MG/DL (<1.0)
[2022-07-20 18:00] LABS: IRON (FE) 111 UG/DL (50-170)
[2022-07-20 18:01] LABS: PERCENT SATURATION 38.8 % (13.2-45.0); TOTAL IRON BINDING CAPACITY 286 UG/DL (250-425)
[2022-07-20 18:03] LABS: FERRITIN 40.8 NG/ML (7.3-270.7)
== END ==
LOC: M LAB REF 16:46
PROVIDERS: ATTEND Internal Medicine
DX: D64.9 Anemia, unspecified (principal); M79.7 Fibromyalgia

== ENCOUNTER → 2024-07-24 | Outpatient (CLI) | payer MEDICARE, BC ==
[~2024-07-24] MED LIST changes: -CYCL5TAB PO; +CYCL5TAB4 PO; +DICY-61 PO; -DICY10CA13 PO; -HYDR200T3 PO; +HYDR200T46 PO; +ISOVUE-370 76% 100ML VIAL As Ordered ONE
== END ==
LOC: M RAD 13:43
PROVIDERS: ATTEND Internal Medicine
DX: R06.02 Shortness of breath (principal); R06.2 Wheezing; R05.3 Chronic cough
CPT/HCPCS: 71275; 85379; Q9967

== ENCOUNTER → 2024-07-24 | Outpatient (REF) | payer MEDICARE, OTHER ==
[~2024-07-24] MED LIST changes: -ISOVUE-370 76% 100ML VIAL As Ordered ONE
== END ==
LOC: M LAB REF 16:16
PROVIDERS: ATTEND Internal Medicine
DX: R06.02 Shortness of breath (principal)

== ENCOUNTER → 2024-11-18 | Outpatient (REF) | payer MEDICARE, OTHER, BC | LOC: M SFHCDERM 17:47 | PROVIDERS: ATTEND Physician Assistant | DX: D49.2 Neoplasm of unspecified behavior of bone, soft tissue, and skin (principal) ==

== ENCOUNTER → 2025-05-13 | Outpatient (CLI) | payer MEDICARE, BC ==
[~2025-05-13] MED LIST changes: +ACET-1515 PO; -ACET650T15 PO; -EQL50TAB2 PO; -RA T500C2 PO; +TURM500C10 PO; +VITA1TAB82 PO
== END ==
LOC: M RAD 10:14
PROVIDERS: ATTEND Internal Medicine
DX: R42 Dizziness and giddiness (principal); Z82.49 Family history of ischemic heart disease and other diseases of the circulatory system; K76.0 Fatty (change of) liver, not elsewhere classified; I65.23 Occlusion and stenosis of bilateral carotid arteries

== ENCOUNTER → 2025-05-24 | Outpatient (REF) | payer MEDICARE, BC | LOC: M SFHCDERM 17:39 | PROVIDERS: ATTEND Physician Assistant | DX: C44.619 Basal cell carcinoma of skin of left upper limb, including shoulder (principal) ==

== ENCOUNTER → 2025-07-15 | Outpatient (REF) | payer MEDICARE, BC | LOC: M SFHCDERM 17:40 | PROVIDERS: ATTEND Dermatology | DX: C44.329 Squamous cell carcinoma of skin of other parts of face (principal) ==